=== PATIENT | female | born 2000 | race American Indian/Alaskan Native ===

== ENCOUNTER 2022-11-23 21:09 | Emergency (ER) | payer OTHER ==
[~2022-11-23] VITALS: Ht 160 cm; Wt 49.9 kg
== END 2022-11-23 22:43 | disposition home or self-care (01) ==
LOC: ER 21:09
DX: S01.81XA Laceration without foreign body of other part of head, initial encounter (principal); W19.XXXA Unspecified fall, initial encounter; Y93.89 Activity, other specified; Y92.89 Other specified places as the place of occurrence of the external cause; Y99.9 Unspecified external cause status